=== PATIENT | female | born 1940 | race Caucasian/White ===

== ENCOUNTER 2021-01-11 12:44 | Emergency (ER) | payer MEDICARE, OTHER ==
[2021-01-11 13:58] LABS: BASOPHIL 0.8 % (0-2); EOSINOPHIL 2.8 % (0-7); HCT 44.1 % (37.0-47.0); HGB 14.6 g/dl (12.5-16.0); LYMPHOCYTE 30.1 % (15-48); MCH 32.4 pg (25.0-31.0); MCHC 33.1 g/dL (32.0-36.0); MONOCYTE 10.2 % (0-12); MPV 9.9 fL (6.0-9.5); NEUTROPHIL 55.9 % (41-80); NRBC 0; PLT 191 K/uL (150-400); RDW 12.8 % (11.5-14.0)
[2021-01-11 14:34] LABS: BILIRUBIN NEGATIVE (NEGATIVE); BLOOD TRACE-INTACT Ery/uL (NEGATIVE); CLARITY CLEAR (CLEAR); COLOR YELLOW (YELLOW); GLUCOSE (U) NORMAL (NORMAL); LEUKOCYTES 2+ Leu/uL (NEGATIVE); NITRITE NEGATIVE (NEGATIVE); PROTEIN NEGATIVE (NEGATIVE); SPECIFIC GRAVITY 1.015 (1.001-1.030); UROBILINOGEN 0.2 mg/dL (0.2-1.0); pH 6.5 (5.0-9.0)
[2021-01-11 14:42] LABS: INR 3.05 (0.9-1.2); PROTHROMBIN TIME 30.5 SECONDS (11.8-13.4)
[2021-01-11 14:49] LABS: BACTERIA 3+
[2021-01-11 14:50] LABS: ALBUMIN 4.3 g/dL (3.4-5.0); BILIRUBIN - TOTAL 0.5 mg/dL (0.2-1.0); BUN/CREAT RATIO (CALC) 23.3 RATIO; CREATININE 0.6 mg/dL (0.51-0.95); GLOBULIN (CALCULATION) 4.4 g/dL; TOTAL PROTEIN 8.7 g/dL (6.4-8.2)
[2021-01-11] MEDS ORDERED: AUGMENTIN 875-1 EACH PO (16:45)
== END 2021-01-11 17:00 | disposition home or self-care (01) ==
LOC: FER 12:44
PROVIDERS: Emergency Medicine
DX: K57.90 Diverticulosis of intestine, part unspecified, without perforation or abscess without bleeding (principal); K43.9 Ventral hernia without obstruction or gangrene; N39.0 Urinary tract infection, site not specified; I10 Essential (primary) hypertension; Z88.1 Allergy status to other antibiotic agents; Z79.899 Other long term (current) drug therapy
CPT/HCPCS: 36415; 80053; 81001; 85025; 85610; 87040; 87076; 87088; 87186; Q9967

== ENCOUNTER 2021-10-29 10:56 | Emergency (ER) | payer MEDICARE, OTHER ==
[~2021-10-29 10:56] MED LIST: AUGMENTIN 875-1 EACH PO
[2021-10-29 12:48] LABS: BASOPHIL 0.1 % (0-2); EOSINOPHIL 0.7 % (0-7); HCT 40.8 % (37.0-47.0); HGB 13.8 g/dl (12.5-16.0); LYMPHOCYTE 19.6 % (15-48); MCH 32.9 pg (25.0-31.0); MCHC 33.8 g/dL (32.0-36.0); MCV 97.1 fL (78.0-100.0); MONOCYTE 8.1 % (0-12); NEUTROPHIL 71.2 % (41-80); NRBC 0; PLT 178 K/uL (150-400); RDW 13.1 % (11.5-14.0); WBC 7.4 K/uL (4.0-10.5)
[2021-10-29 12:57] LABS: BUN/CREAT RATIO (CALC) 20.9 RATIO; CREATININE 0.67 mg/dL (0.51-0.95); POTASSIUM 3.4 mmol/L (3.5-5.1)
[2021-10-29 13:54] LABS: CLARITY CLEAR (CLEAR); COLOR YELLOW (YELLOW); GLUCOSE (U) NORMAL (NORMAL); PROTEIN NEGATIVE (NEGATIVE)
[2021-10-29 13:55] LABS: BILIRUBIN NEGATIVE (NEGATIVE); BLOOD NEGATIVE Ery/uL (NEGATIVE); LEUKOCYTES 1+ Leu/uL (NEGATIVE); NITRITE POSITIVE (NEGATIVE); UROBILINOGEN 0.2 mg/dL (0.2-1.0)
[2021-10-29 14:00] LABS: BACTERIA 2+; URINARY WBC RARE
[2021-10-29] MEDS ORDERED: BACLOFEN 10MG T10 MG PO (14:33)
[2021-10-29] MEDS ORDERED: AMOX TR-K CLV1 EAC4 PO (14:33)
[2021-10-29] MEDS ORDERED: ULTRAM50 MG PO (14:33)
== END 2021-10-29 15:04 | disposition home or self-care (01) ==
LOC: FER 10:56
PROVIDERS: Nurse Practitioner Family
DX: M54.6 Pain in thoracic spine (principal); N39.0 Urinary tract infection, site not specified; I10 Essential (primary) hypertension; E78.5 Hyperlipidemia, unspecified; Z88.1 Allergy status to other antibiotic agents; Z88.2 Allergy status to sulfonamides; Z79.01 Long term (current) use of anticoagulants; Z79.899 Other long term (current) drug therapy
CPT/HCPCS: 36415; 72072; 80048; 81001; 85025; 87076; 87088; 87186; J1100